=== PATIENT | female | born 1990 | race Caucasian/White ===

== ENCOUNTER → 2021-03-27 | Emergency (ER) | payer OTHER ==
[~2021-03-27] VITALS: Ht 162.6 cm; Wt 61.6 kg
[~2021-03-27] MED LIST: CYCL-1 PO; IBUP-1984 PO; acetaminophen 325mg tablet PO ONE; cyclobenzaprine 10mg tablet PO ONE
[2021-03-27 16:05] VITALS: BP 127/80
[2021-03-27] MEDS: ketorolac tromethamine 15mg/ml inj. IM ONE ×2 (16:40→17:09)
[2021-03-27 17:07] LABS: URINE HCG NEGATIVE (NEG)
--- NOTE | 2021-03-27 18:15 | NUR ---
pt receibed the option of a soft neck collar, refused at this time
== END | disposition home or self-care (01) ==
LOC: ER 15:34
DX: S16.1XXA Strain of muscle, fascia and tendon at neck level, initial encounter (principal); S23.9XXA Sprain of unspecified parts of thorax, initial encounter; R68.84 Jaw pain; M54.89 Other dorsalgia; R51.9 Headache, unspecified; R11.2 Nausea with vomiting, unspecified; Z79.899 Other long term (current) drug therapy; V87.7XXA Person injured in collision between other specified motor vehicles (traffic), initial encounter; Y93.89 Activity, other specified; Y92.89 Other specified places as the place of occurrence of the external cause; Y99.8 Other external cause status
CPT/HCPCS: 70450; 72125; 72128; 72131; 81025; 99285; J1885